=== PATIENT | female | born 1975 | race Caucasian/White ===

== ENCOUNTER 2017-04-12 04:45 | Emergency (ER) | payer BC ==
[~2017-04-12] VITALS: Ht 160 cm; Wt 100.9 kg
[~2017-04-12 04:45] MED LIST: BACTRIM,SEPT1 TABLET PO; CLEOCIN300 MG PO; FLONASE16 G1 BOTH NARES; LORTAB 5-325 M1 EACH PO; MOBIC7.5 MG PO; MOTRIN600 MG PO; Motrin PO; NAPROSYN500 MG PO; NOHOMEMEDS; NORCO 5/3251 TABLET PO; PERCOCET 5/31 TABLET PO; PRILOSEC40 MG PO; SPIRONOLACTONE50 MG PO; VIBRAMYCIN100 MG PO; ZITHROMAX Z-PA250 MG PO; ZOFRAN ODT4 MG PO
[2017-04-12 05:36] LABS: CHLORIDE 109 mEq/L (99-109); POTASSIUM 3.5 mEq/L (3.7-5.4); SODIUM 139 mEq/L (136-147)
[2017-04-12 05:38] LABS: GLUCOSE 115 mg/dL (70-99)
[2017-04-12 05:40] LABS: ANION GAP 13 MEQ/L (2-14); TOTAL BILIRUBIN 0.3 mg/dL (0.0-1.0)
[2017-04-12 05:42] LABS: ALKALINE PHOSPHATASE 54 IU/L (3-129); GFR ESTIMATE (CALCULATED) > 59 mL/min/
[2017-04-12 05:43] LABS: UREA NITROGEN (BUN) 10 mg/dL (9-23)
[2017-04-12 05:45] LABS: LIPASE 46 U/L (1.0-51.0)
[2017-04-12 05:52] LABS: QUANTITATIVE HCG < 4.0 MIU/ML
[2017-04-12 05:57] VITALS: BP 99/63
[2017-04-12 05:57] LABS: HEMATOCRIT 47.7 % (36.0-46.0); MCH 29.9 PG (29.0-34.0); MCHC 33.3 G/DL (30.0-36.0); MCV 89.8 FL (83-99); MEAN PLAT.VOLUME 12.8 uM^3 (9.5-12.4); PLATELET COUNT 240 K/uL (156-360); RBC DIS.WIDTH-CV 12.6 % (11.8-14.6); RBC DIS.WIDTH-SD 41.7 % (39-53); RED BLOOD COUNT 5.31 M/uL (3.80-5.20); WHITE BLOOD COUNT 11.7 K/uL (4.1-10.2)
[2017-04-12] MEDS ORDERED: PROTONIX40 MG PO (06:08)
== END 2017-04-12 06:22 | disposition home or self-care (01) ==
LOC: EME 04:45
PROVIDERS: Emergency Medicine
DX: K82.4 Cholesterolosis of gallbladder (principal); R10.11 Right upper quadrant pain; K21.9 Gastro-esophageal reflux disease without esophagitis; Z90.710 Acquired absence of both cervix and uterus; Z88.0 Allergy status to penicillin; Z88.1 Allergy status to other antibiotic agents; Z91.040 Latex allergy status
CPT/HCPCS: 76705; 80053; 81003; 83690; 84702; 85027; 99281; 99285; J1630; J3010; J7030

== ENCOUNTER 2017-04-28 08:38 | Day surgery (SDC) | payer BC ==
[~2017-04-28] VITALS: Ht 160 cm; Wt 95.3 kg
[~2017-04-28 08:38] MED LIST changes: +ALDACTONE50 MG PO; +FLAGYL500 MG PO; +OMEPRAZOLE40 M1 PO; -PRILOSEC40 MG PO; +PROTONIX40 MG PO
[2017-04-28 09:09] VITALS: BP 112/62
[2017-04-28] MEDS ORDERED: COLACE100 MG PO (12:44)
[2017-04-28] MEDS ORDERED: PERCOCET 5/31 TABLET PO (12:44)
[2017-04-28 14:20] VITALS: BP 113/66
[2017-04-28 15:20] VITALS: BP 109/59
[2017-04-28 15:48] VITALS: BP 109/59
[2017-04-28 15:57] VITALS: BP 118/67
== END 2017-04-28 16:15 | disposition home or self-care (01) ==
LOC: SDC 08:38
PROC: 0FT44ZZ Resection of Gallbladder, Percutaneous Endoscopic Approach (ICD-10-PCS; principal; 2017-04-28)
DX: K80.10 Calculus of gallbladder with chronic cholecystitis without obstruction (principal); I10 Essential (primary) hypertension; K21.9 Gastro-esophageal reflux disease without esophagitis; G47.30 Sleep apnea, unspecified; F41.8 Other specified anxiety disorders; E66.01 Morbid (severe) obesity due to excess calories; Z68.39 Body mass index [BMI] 39.0-39.9, adult; Z87.891 Personal history of nicotine dependence; Z88.0 Allergy status to penicillin
CPT/HCPCS: 88304; 93005; J1100; J2250; J2405; J2765; J3010; Q0175